=== PATIENT | female | born 1990 | race Caucasian/White ===

== ENCOUNTER 2019-06-13 13:14 | Emergency (ER) | payer OTHER ==
--- OUTSIDE RECORDS SUMMARY | 2019-06-13 13:23 | XMS REPORT | Continuity of Care Document ---
:1990 External Reference #:[id number] Author Name Celine Marshall FNP (transmitted by agent of provider Vanessa Encinas) Address [address] [place] [id number] Care Team Providers Name Role Phone Robbin Cespedes MD - Family Medicine Care Team Information Supervisor Body Assembly Problems Description No Active Problems Social History Type Date Description Comments Sex Unknown ETOH Use Rarely consumes alcohol Tobacco Use Start: Unknown Patient has never smoked Recreational Drug Use Denies Drug Use Smoking Status Reviewed: 02/02/19 Patient has never smoked Allergies, Adverse Reactions, Alerts Description No Known Drug Allergies Medications Description No Active Medications Immunizations CPT Code Status Date Vaccine Lot # [id number] Given 09/26/2015 Hepatitis B Vaccine Adult [id number] Vital Signs Date Vital Result Comment 02/02/2019 4:16pm BP Systolic 132 mmHg BP Diastolic 86 mmHg Body Temperature 99.0 F Heart Rate 81 /min Respiratory Rate 18 /min Height 60.5 inches 5'0.50" Weight 257.25 lb BMI (Body Mass Index) 49.4 kg/m2 BSA (Body Surface Area) 2.09 m2 [place] body weight in kilograms 47 kg O2 % BldC Oximetry 98 % Ra 07/21/2017 8:58am BP Systolic Sitting Left Arm 124 mmHg BP Diastolic Sitting Left Arm 74 mmHg Height 61 inches 5'1" Weight 258.25 lb BMI (Body Mass Index) 48.8 kg/m2 BSA (Body Surface Area) 2.11 m2 [place] body weight in kilograms 48 kg Results Description No Information Available Procedures Description No Information Available Medical Devices Description No Information Available Encounters Type Date Location Provider Dx Diagnosis Office Visit 02/02/2019 Family Medicine Celine Marshall FNP Z00.00 Encntr for general 4:[address] adult medical exam w/o abnormal findings Z13.6 Encounter for screening for cardiovascular disorders Z13.29 Encounter for screening for oth suspected endocrine disorder Assessments Date Code Description Provider 02/02/2019 Z00.00 Encounter for general adult medical examination Celine Marshall FNP without abnormal findings 02/02/2019 Z13.6 Encounter for screening for cardiovascular Celine Marshall FNP disorders 02/02/2019 Z13.29 Encounter for screening for other suspected Celine Marshall FNP endocrine disorder Plan of Treatment 02/02/2019 - Celine Marshlal FNPZ00.00 Encounter for general adult medical examination without abnormal findingsComments:My General Health Recommendations: 1. One of the best things you can do for your heart health and cholesterol is to avoid added sugar and trans fat. Why? They increase triglycerides, and high triglycerides often increase your risk of heart disease. Most of the time, avoid soda, ultra-processed carbs like muffins, pastries, donuts, cake, cookies , desserts, crackers, pretzels, chips, candy, sweet coffeecreamers, juice, and alcohol. Instead, opt for more nutritious carbohydrates like vegetables, fruit, potations, corn, rice, 100% whole wheat bread and pasta, or oatmeal.2. Try to eat 5 cups of colorfuland/or green leafy vegetables every day. I recommend half your plate be vegetables at each meal of the day.3. Cook your meals at home most of the time, instead of eating at a restaurant or eating fastfood.4. Avoid using unhealthy oils like vegetable oil, canola oil, soybean oil and margarine. Instead, try to cook with olive oil, avocado oil or coconut oil. 5. Drink 1/2 your body weight in ounces ofplain water daily, or at least 64 ounces. 6. Getting in a walking routine of 30+ minutes per day is excellent for your heart, bones and longevity. If you have a step counter, aim for 10,000 steps/day. Lifting weights is also excellent for your overall health.7. Prioritize sleep: 7-9 hours per night isbest for optimum health and recovery from internal and external stress. Turn off screens in the 1 hour before bed to help wind down (this means TV, computer, phone and tablet).8. Check your skin regularly for moles that are asymmetrical, have an irregular border, are changing color, are getting bigger, are bleeding or scabbing, or are bigger than 6mm.9. I recommend 2 dentist visits per year for cleanings, as well as daily flossing, and an eye exam every year.Z13.6 Encounter for screening for cardiovascular disordersNew Labs:LDL Cholesterol Profile, Ordered: Z13.29 Encounter for screening for other suspected endocrine disorderNew Labs: Glycohemoglobin A1c, Ordered: 02/02/19 Functional Status Description No Information Available Mental Status Description No Information Available Referrals Description No Information Available
[2019-06-13 13:43] VITALS: BP 142/87
[2019-06-13 13:44] LABS: Influenza B Molecular POSITIVE (Negative)
--- NOTE | 2019-06-13 13:47 | UC ---
Respiratory Complaint HPI - HPI Summary HPI Summary: cough x 4 days cough is productive with yellow sputum worse with deep breathing , better with rest, + sore throat, fever, chills and body aches - History of Current Complaint Chief Complaint: UCRespiratory Stated Complaint: FLU LIKE SYMPTOMS Time Seen by Provider: 06/13/19 13:38 Hx Obtained From: Patient Hx Last Menstrual Period: end may ?: No Onset/Duration: Gradual Onset, Lasting Days - 4, Still Present Timing: Constant Severity Initially: Moderate Severity Currently: Moderate Pain Intensity: 5 Character: Cough: Productive Aggravating Factors: Exertion, Deep Breaths Alleviating Factors: Nothing Associated Signs And Symptoms: Positive: Fever, Chills, URI, Nasal Congestion. Negative: Dyspnea, Wheezing, Hemoptysis, Dizziness, Calf Pain - Allergies/Home Medications Allergies/Adverse Reactions: Allergies Allergy/AdvReac Type Severity Reaction Status Date / Time No Known Allergies Allergy Verified 06/13/19 13:43 Home Medications: Home Medications guaiFENesin 100 mg/5 ml LIQ [Robitussin 100 mg/5ml LIQ] 20 ml PO Q4H PRN [History Confirmed 06/13/19] PMH/Surg Hx/FS Hx/Imm Hx Previously Healthy: Yes - Surgical History Surgical History: None - Family History Known Family History: Positive: Non-Contributory - Social History Alcohol Use: Occasionally Substance Use Type: None Smoking Status (MU): Never Smoked Tobacco Review of Systems All Other Systems Reviewed And Are Negative: Yes Constitutional: Positive: Fever, Chills, Fatigue Skin: Positive: Negative Eyes: Positive: Negative ENT: Positive: Sore Throat, Nasal Discharge Respiratory: Positive: Cough Cardiovascular: Positive: Negative Is Patient Immunocompromised?: No Physical Exam Triage Information Reviewed: Yes Appearance: Well-Appearing, No Pain Distress, Well-Nourished Vital Signs: Initial Vital Signs Temp 100.5 F 06/13/19 13:36 Pulse 117 06/13/19 13:36 Resp 24 06/13/19 13:36 BP 142/87 06/13/19 13:36 Pulse Ox 97 06/13/19 13:36 Vital Signs Reviewed: Yes Eye Exam: Normal Eyes: Positive: Conjunctiva Clear ENT: Positive: Normal ENT inspection, Hearing grossly normal, Pharynx normal Neck exam: Normal Neck: Positive: Supple, Nontender, No Lymphadenopathy Respiratory: Positive: Chest non-tender, Lungs clear, Normal breath sounds Cardiovascular: Positive: Tachycardia Abdominal Exam: Normal Respiratory Course/Dx - Differential Dx/Diagnosis Provider Diagnosis: Influenza A Discharge ED - Sign-Out/Discharge Documenting (check all that apply): Patient Departure All imaging exams completed and their final reports reviewed: No Studies - Discharge Plan Condition: Stable Disposition: HOME Prescriptions: Oseltamivir CAP* [Tamiflu CAP*] 75 mg PO BID #10 cap Patient Education Materials: Influenza (ED) Forms: *Work Release Referrals: Arleth Styles MD [Primary Care Provider] - 5 Days - Billing Disposition and Condition Condition: STABLE Disposition: Home
== END 2019-06-13 14:13 | disposition home or self-care (01) ==
LOC: UCCORT 13:14
DX: J10.1 Influenza due to other identified influenza virus with other respiratory manifestations (principal)
CPT/HCPCS: 99202; G0463

== ENCOUNTER 2020-11-26 05:52 | Inpatient (IN) ==
[~2020-11-26 05:52] MED LIST: Buffered Lidocaine 1% SYRIN 1 ml INTRADERM ONE; DiMENhydriNATE IV 50 mg/ml 1 ml VIAL IV PUSH ONE; HYDROmorphone 1 MG/1 ML SYRINGE IV PRN; Lactated Ringers 1000 ml BAG 1,000 ML IV SCH; Naloxone 0.4 mg VIAL 0.4 mg/ml 1 ml VIAL IV PRN; Ondansetron 4 mg VIAL 2 MG/ML 2 ml VIAL IV PRN; fentaNYL 100 mcg/2 ml 50 MCG/ML VIAL IV PRN
[2020-11-26] MEDS ORDERED: Heparin 5000 UNITS/ML 1 mL VIAL ONE (06:20)
[2020-11-26] MEDS ORDERED: ceFAZolin 2 GM in NS PREMIX 2 GM/100 ML BAG IVPB ONE (06:21)
[2020-11-26] MEDS ORDERED: ceFAZolin 1 GM ADVAN 1 GM ADDV.VIAL IVPB ONE (06:21)
[2020-11-26] MEDS ORDERED: Buffered Lidocaine 1% SYRIN 1 ml INTRADERM ONE (06:21)
[2020-11-26] MEDS ORDERED: DiMENhydriNATE IV 50 mg/ml 1 ml VIAL ONE (06:21)
[2020-11-26] MEDS ORDERED: Lidocaine 2% PF 5 ML VIAL ONE (07:01)
[2020-11-26] MEDS ORDERED: Rocuronium 50 mg VIAL 10 mg/ml 5 ml VIAL (50 mg) ONE ×2 (07:01→08:15)
[2020-11-26] MEDS ORDERED: Propofol 10 MG/ML 20 ML BTL ONE (07:01)
[2020-11-26] MEDS ORDERED: Midazolam 2 mg/2 ml VIAL 1 mg/ml 2 ml VIAL (2 mg) ONE (07:01)
[2020-11-26] MEDS ORDERED: fentaNYL 250 mcg/5 ml 50 MCG/ML 5 ml VIAL (250 MCG) ONE (07:01)
[2020-11-26] MEDS ORDERED: Bupivacaine 0.25% EPI 200,000 30 ML SDV ONE (07:13)
[2020-11-26] MEDS ORDERED: Methylene Blue 0.5 % 50 MG/10 ML AMP IV ONE (07:13)
[2020-11-26] MEDS ORDERED: Dexamethasone IV 4 MG/ML VIAL 1 ml VIAL ONE (08:07)
[2020-11-26] MEDS ORDERED: Ondansetron 4 mg VIAL 2 MG/ML 2 ml VIAL ONE ×2 (08:07→10:50)
[2020-11-26] MEDS ORDERED: HYDROmorphone 1 MG/1 ML SYRINGE ONE (08:15)
[2020-11-26] MEDS ORDERED: fentaNYL 100 mcg/2 ml 50 MCG/ML VIAL ONE (09:33)
[2020-11-26] MEDS ORDERED: diPHENhydraMINE IV 50 MG/ML 1 ml VIAL (BENADRYL) SLOW PUSH PRN (10:20)
[2020-11-26] MEDS ORDERED: HYDROmorphone 1 MG/1 ML SYRINGE IV SLOW PU PRN (10:20)
[2020-11-26] MEDS ORDERED: HYDROmorphone 0.5 MG/0.5 ML SYRINGE IV SLOW PU PRN (10:20)
[2020-11-26] MEDS ORDERED: Prochlorperazine 5 mg/ml 2 ml VIAL (10 mg) IV PRN (11:45)
[2020-11-26] MEDS: Lactated Ringers 1000 ml BAG 1,000 ML IV SCH ×2 (12:04→19:51)
[2020-11-26] MEDS: Heparin 5000 UNITS/ML 1 mL VIAL SUBCUT SCH ×2 (13:09→22:13)
[2020-11-26] MEDS: Famotidine IV 10 MG/ML 2 ml VIAL (20 mg) IV SLOW PU SCH (21:00)
[2020-11-27] MEDS: Ondansetron 4 mg VIAL 2 MG/ML 2 ml VIAL IV PRN ×2 (00:14→08:09)
[2020-11-27] MEDS: Lactated Ringers 1000 ml BAG 1,000 ML IV SCH (02:37)
[2020-11-27] MEDS: Heparin 5000 UNITS/ML 1 mL VIAL SUBCUT SCH ×2 (06:05→15:09)
[2020-11-27] MEDS: Famotidine IV 10 MG/ML 2 ml VIAL (20 mg) IV SLOW PU SCH (08:09)
[2020-11-27 11:19] VITALS: BP 114/70
[2020-11-27] MEDS ORDERED: D5W 1/2 NS KCl 20 meq 1000 ml 1,000 ML IV SCH (12:00)
[2020-11-29] MEDS ORDERED: Scopolamine PATCH Remove NOTE PATCH OFF SCH (12:00)
== END 2020-11-27 16:00 | disposition home or self-care (01) | DRG 403 ==
LOC: AA 05:52 → BSU 11:37 → SSU 11:38
PROVIDERS: ADMIT Surgery; ATTEND Surgery